=== PATIENT | female | born 1970 | race Caucasian/White ===

== ENCOUNTER 2023-12-06 06:38 | Emergency (ER) | payer OTHER ==
[2023-12-06 06:48] VITALS: BP 121/79; PULSE 83; RESP 18; TEMP 98.4; BMI 27.2
== END 2023-12-06 08:54 | disposition home or self-care (01) ==
LOC: JER 06:38
DX: R05.9 Cough, unspecified (principal); R09.81 Nasal congestion; J01.90 Acute sinusitis, unspecified; Z20.822 Contact with and (suspected) exposure to COVID-19
CPT/HCPCS: 0241U-QW; 99283-25